=== PATIENT | female | born 1980 | race Hispanic/Latino ===

== ENCOUNTER 2020-12-26 16:30 | Inpatient (IN) | payer OTHER ==
--- NOTE | 2020-12-26 19:49 | Ultrasound Report ---
ULTRASOUND OBSTETRIC LIMITED ULTRASOUND BIOPHYSICAL PROFILE INDICATION / CLINICAL INFORMATION: ANDREW - DECREASED MOVEMENT. COMPARISON: None available. FINDINGS: BREATHING MOVEMENT = 2 GROSS BODY MOVEMENT = 2 TONE = 2 QUALITATIVE AMNIOTIC FLUID VOLUME = 0 TOTAL BIOPHYSICAL SCORE = 6/8 HEART RATE (beats per minute): 129 AMNIOTIC FLUID INDEX (cm) = 4.2 (normal = 7-24 cm) PRESENTATION: Cephalic. ADDITIONAL FINDINGS: None. IMPRESSION: 1. Biophysical Score = 6/8 2. Low amniotic fluid index of 4.2 cm. Signer Name: Francesco Álvarez MD Signed: 12/26/2020 7:45 PM Workstation Name: [email or web address]
[2020-12-26] MEDS ORDERED: BUTORPHANOL 2 MG/1 ML INJ IV PRN (20:50)
[2020-12-26] MEDS ORDERED: ONDANSETRON 4 MG/2 ML INJ IV PRN (20:50)
[2020-12-26] MEDS ORDERED: LIDOCAINE (2%) 20 MG/1 ML VIAL 20 ML MDV INFILTRATI ONE (20:50)
[2020-12-26] MEDS ORDERED: miSOPROStol 200 MCG TAB PR PRN (20:50)
[2020-12-26] MEDS ORDERED: MINERAL OIL 30 ML ORAL LIQD PO PRN (20:50)
[2020-12-26] MEDS ORDERED: LOPERAMIDE 2 MG CAP PO PRN (20:50)
[2020-12-26] MEDS ORDERED: ACETAMINOPHEN 325 MG TAB PO PRN (20:50)
[2020-12-26] MEDS ORDERED: OXYTOCIN 10 UNIT/1 ML INJ IM PRN (20:50)
[2020-12-26] MEDS ORDERED: CARBOPROST TROMETHAMINE 250 MCG/1 ML INJ IM PRN (20:50)
[2020-12-26] MEDS ORDERED: METHYLERGONOVINE MALEATE 0.2 MG/ML VIAL IM PRN (20:50)
[2020-12-26] MEDS ORDERED: TERBUTALINE 1 MG/1 ML INJ SUB-Q PRN (20:50)
[2020-12-26] MEDS ORDERED: fentaNYL 100 MCG/2 ML INJ IV PRN (20:50)
[2020-12-26] MEDS ORDERED: ePHEDrine SULFATE 50 MG/1 ML INJ IV PRN (20:50)
[2020-12-26] MEDS ORDERED: OXYTOCIN DRIP 30 UNITS/500 ML BAG IV SCH (21:00)
[2020-12-26] MEDS ORDERED: AMPICILLIN/NS 2 GM/100 ML 2 GM/100 ML BAG IV ONE (21:00)
[2020-12-26] MEDS: LACTATED RINGERS 1,000 ML IV SCH (21:17)
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
[2020-12-26 21:29] LABS: Hematocrit 35.4 % (30.3-42.9); Hemoglobin 12.4 gm/dl (10.1-14.3); Mean Corpuscular HGB Conc 35 % (30-34); Mean Corpuscular Volume 87 fl (79-97); Platelet Count 136 K/mm3 (140-440)
[2020-12-26 21:53] LABS: Alanine Aminotransferase 9 units/L (7-56); Uric Acid 5.5 mg/dL (3.5-7.6)
[2020-12-27] MEDS: LACTATED RINGERS 1,000 ML IV SCH ×2 (06:41→12:09)
--- NOTE | 2020-12-27 10:42 | Progress Note ---
Assessment and Plan A: IUP@ 39.6 wks AMA, OLIGO, PIH P: Continue monitoring with Pitocin AROM by Dr Zurita (cl fluid) Pain med/epidural prn Anticipate Subjective - Subjective Date of service: 12/27/20 Principal diagnosis: IUP@39.6 wks Patient reports: movement normal Objective - Vital Signs Vital Signs: Vital Signs - 12hr 12/26/20 12/26/20 12/26/20 22:40 22:41 22:46 Pulse Rate 69 66 70 Blood Pressure 116/60 O2 Sat by Pulse 97 97 Oximetry 12/26/20 12/26/20 12/26/20 22:51 22:56 23:01 Pulse Rate 70 68 75 Blood Pressure O2 Sat by Pulse 98 96 97 Oximetry 12/26/20 12/26/20 12/26/20 23:06 23:10 23:11 Pulse Rate 70 68 68 Blood Pressure 111/55 O2 Sat by Pulse 98 98 Oximetry 12/26/20 12/26/20 12/26/20 23:16 23:21 23:26 Pulse Rate 65 64 71 Blood Pressure O2 Sat by Pulse 98 97 96 Oximetry 12/26/20 12/26/20 12/26/20 23:40 23:45 23:50 Pulse Rate 73 68 70 Blood Pressure O2 Sat by Pulse 99 99 98 Oximetry 12/26/20 12/27/20 12/27/20 23:55 00:00 00:05 Pulse Rate 66 73 71 Blood Pressure O2 Sat by Pulse 98 98 98 Oximetry 12/27/20 12/27/20 12/27/20 00:10 00:15 00:20 Pulse Rate 67 70 79 Blood Pressure 133/77 O2 Sat by Pulse 98 97 96 Oximetry 12/27/20 12/27/20 12/27/20 00:25 00:30 00:35 Pulse Rate 61 68 71 Blood Pressure O2 Sat by Pulse 98 97 98 Oximetry 12/27/20 12/27/20 12/27/20 00:39 00:40 00:45 Pulse Rate 75 73 62 Blood Pressure 117/85 O2 Sat by Pulse 98 97 Oximetry 12/27/20 12/27/20 12/27/20 00:50 00:55 01:05 Pulse Rate 64 74 76 Blood Pressure O2 Sat by Pulse 96 96 99 Oximetry 12/27/20 12/27/20 12/27/20 01:10 01:11 01:15 Pulse Rate 74 75 77 Blood Pressure 130/88 O2 Sat by Pulse 98 98 Oximetry 12/27/20 12/27/20 12/27/20 01:20 01:25 01:30 Pulse Rate 64 68 66 Blood Pressure O2 Sat by Pulse 98 99 98 Oximetry 12/27/20 12/27/20 12/27/20 01:35 01:39 01:40 Pulse Rate 78 76 73 Blood Pressure 122/80 O2 Sat by Pulse 98 99 Oximetry 12/27/20 12/27/20 12/27/20 01:45 01:50 01:55 Pulse Rate 68 64 77 Blood Pressure O2 Sat by Pulse 96 97 97 Oximetry 12/27/20 12/27/20 12/27/20 02:00 02:05 02:10 Pulse Rate 69 70 66 Blood Pressure O2 Sat by Pulse 96 97 96 Oximetry 12/27/20 12/27/20 12/27/20 02:43 02:48 02:53 Pulse Rate 68 55 L 67 Blood Pressure O2 Sat by Pulse 97 97 99 Oximetry 12/27/20 12/27/20 12/27/20 02:58 03:03 03:06 Pulse Rate 68 73 71 Blood Pressure O2 Sat by Pulse 97 97 94 Oximetry 12/27/20 12/27/20 12/27/20 03:19 03:24 03:29 Pulse Rate 65 68 67 Blood Pressure O2 Sat by Pulse 99 97 97 Oximetry 12/27/20 12/27/20 12/27/20 03:34 03:39 03:44 Pulse Rate 67 79 74 Blood Pressure O2 Sat by Pulse 98 97 98 Oximetry 12/27/20 12/27/20 12/27/20 03:48 03:49 03:54 Pulse Rate 67 65 64 Blood Pressure O2 Sat by Pulse 94 98 97 Oximetry 12/27/20 12/27/20 12/27/20 03:59 04:04 04:09 Pulse Rate 63 66 66 Blood Pressure O2 Sat by Pulse 96 98 96 Oximetry 12/27/20 12/27/20 12/27/20 04:14 04:19 04:24 Pulse Rate 66 69 65 Blood Pressure O2 Sat by Pulse 95 96 95 Oximetry 12/27/20 12/27/20 12/27/20 04:29 04:34 04:39 Pulse Rate 67 70 72 Blood Pressure O2 Sat by Pulse 96 96 96 Oximetry 12/27/20 12/27/20 12/27/20 04:44 04:49 04:54 Pulse Rate 68 65 74 Blood Pressure O2 Sat by Pulse 96 96 96 Oximetry 12/27/20 12/27/20 12/27/20 04:59 05:04 05:09 Pulse Rate 66 67 65 Blood Pressure O2 Sat by Pulse 96 96 96 Oximetry 12/27/20 12/27/20 12/27/20 05:14 05:19 05:24 Pulse Rate 65 67 65 Blood Pressure O2 Sat by Pulse 95 96 97 Oximetry 12/27/20 12/27/20 12/27/20 05:29 05:34 05:39 Pulse Rate 69 69 60 Blood Pressure O2 Sat by Pulse 96 96 96 Oximetry 12/27/20 12/27/20 12/27/20 05:40 05:44 05:49 Pulse Rate 69 66 71 Blood Pressure O2 Sat by Pulse 94 95 97 Oximetry 12/27/20 12/27/20 12/27/20 05:54 05:59 06:39 Pulse Rate 69 73 56 L Blood Pressure O2 Sat by Pulse 97 98 97 Oximetry 12/27/20 12/27/20 12/27/20 06:44 06:49 06:54 Pulse Rate 61 62 66 Blood Pressure O2 Sat by Pulse 97 97 98 Oximetry 12/27/20 12/27/20 12/27/20 06:59 07:04 07:09 Pulse Rate 65 58 L 57 L Blood Pressure O2 Sat by Pulse 97 97 97 Oximetry 12/27/20 12/27/20 12/27/20 07:14 07:19 07:24 Pulse Rate 59 L 59 L 61 Blood Pressure O2 Sat by Pulse 97 97 97 Oximetry 12/27/20 12/27/20 12/27/20 07:29 07:33 07:34 Pulse Rate 71 78 72 Blood Pressure O2 Sat by Pulse 100 93 96 Oximetry 12/27/20 12/27/20 12/27/20 07:40 07:44 07:50 Pulse Rate 63 66 67 Blood Pressure O2 Sat by Pulse 97 97 98 Oximetry 12/27/20 12/27/20 12/27/20 07:54 07:59 08:04 Pulse Rate 63 65 71 Blood Pressure O2 Sat by Pulse 96 97 93 Oximetry 12/27/20 12/27/20 12/27/20 08:05 08:10 08:14 Pulse Rate 69 63 66 Blood Pressure O2 Sat by Pulse 97 96 97 Oximetry 12/27/20 12/27/20 12/27/20 08:20 08:24 08:29 Pulse Rate 59 L 60 63 Blood Pressure O2 Sat by Pulse 98 97 97 Oximetry 12/27/20 12/27/20 12/27/20 08:34 08:39 08:45 Pulse Rate 59 L 64 64 Blood Pressure O2 Sat by Pulse 97 96 99 Oximetry 12/27/20 12/27/20 12/27/20 08:50 08:55 08:59 Pulse Rate 67 69 64 Blood Pressure 103/68 O2 Sat by Pulse 98 98 98 Oximetry 12/27/20 12/27/20 12/27/20 09:05 09:10 09:11 Pulse Rate 66 77 70 Blood Pressure 120/69 O2 Sat by Pulse 99 99 Oximetry 12/27/20 12/27/20 12/27/20 09:15 09:20 09:24 Pulse Rate 74 86 61 Blood Pressure O2 Sat by Pulse 99 100 99 Oximetry 12/27/20 12/27/20 12/27/20 09:30 09:35 09:40 Pulse Rate 59 L 62 76 Blood Pressure O2 Sat by Pulse 98 96 98 Oximetry 12/27/20 12/27/20 12/27/20 09:45 09:50 09:55 Pulse Rate 59 L 60 66 Blood Pressure O2 Sat by Pulse 99 100 98 Oximetry 12/27/20 12/27/20 12/27/20 09:58 10:00 10:04 Pulse Rate 67 67 66 Blood Pressure O2 Sat by Pulse 93 99 100 Oximetry 12/27/20 12/27/20 12/27/20 10:09 10:10 10:11 Pulse Rate 67 68 67 Blood Pressure 124/70 O2 Sat by Pulse 100 93 Oximetry 12/27/20 12/27/20 12/27/20 10:14 10:20 10:25 Pulse Rate 70 77 67 Blood Pressure O2 Sat by Pulse 100 93 99 Oximetry 12/27/20 12/27/20 10:30 10:35 Pulse Rate 71 71 Blood Pressure O2 Sat by Pulse 100 99 Oximetry - Exam Breasts: deferred Abdomen: Present: normal appearance, soft, normal bowel sounds Vulva: both: normal Uterus: Present: normal FHR: auscultation normal, category 1 Uterine Contraction Monitor Mode: External Cervical Dilatation: 3 Cervical Effacement Percentage: 50 station: -4 Uterine Contraction Pattern: Irregular Uterine Tone Measurement Phase: Resting Uterine Contraction Intensity: Mild Extremities: normal - Labs Labs: Abnormal Labs 12/26/20 20:57 MCHC 35 H RDW 16.0 H Plt Count 136 L Laboratory Results - last 24 hr 12/26/20 12/26/20 12/26/20 20:57 20:57 20:57 WBC 7.0 RBC 4.10 Hgb 12.4 Hct 35.4 MCV 87 MCH 30 MCHC 35 H RDW 16.0 H Plt Count 136 L Creatinine 0.6 Estimated GFR > 60 Uric Acid 5.5 AST 16 ALT 9 Lactate Dehydrogenase 149 Syphilis IgG Antibody Nonreactive Blood Type Antibody Screen 12/26/20 20:57 WBC RBC Hgb Hct MCV MCH MCHC RDW Plt Count Creatinine Estimated GFR Uric Acid AST ALT Lactate Dehydrogenase Syphilis IgG Antibody Blood Type O POSITIVE Antibody Screen Negative
[2020-12-27] MEDS ORDERED: NALOXONE 2 MG/2 ML INJ IV PRN (11:25)
--- NOTE | 2020-12-27 11:25 | Anesthesia Consultation ---
Anesthesia Consult and Med Hx Date of service: 12/27/20 - Pulmonary Exam CTA: Yes - Cardiac Exam Cardiac Exam: RRR - Pre-Operative Health Status ASA Pre-Surgery Classification: ASA3 Proposed Anesthetic Plan: Epidural - Pulmonary Hx Asthma: Yes COPD: No Hx Pneumonia: No - Cardiovascular System Hx Hypertension: Yes (B/P MONITORED THIS ) - Central Nervous System Hx Seizures: No Hx Psychiatric Problems: No - Endocrine Hx Renal Disease: No Hx End Stage Renal Disease: No Hx Hypothyroidism: No Hx Hyperthyroidism: No - Hematic Hx Anemia: No Hx Sickle Cell Disease: No - Other Systems Hx Alcohol Use: No
[2020-12-27] MEDS ORDERED: ePHEDrine SULFATE 50 MG/1 ML INJ IV PRN (11:30)
--- NOTE | 2020-12-27 11:46 | Progress Note ---
Labor Epidural - Labor Epidural Start Time: 11:37 Stop Time: 11:41 Performed by:: BRANT BRICEÑO Procedure: Patient is requesting epidural for labor pain. H&P, and labs reviewed. Procedure explained, questions answered, consent obtained. Patient in sitting position with blood pressure cuff and pulse ox on and working. Timeout performed immediately before start of procedure. Sterile chlorahexadine 0.5% prep/drape. 3 mL 1% lidocaine skin wheal at L[3]-L[4]. 18-gauge MSTtead epidural needle advanced to [id number] with saline at [7] cm. Epidural catheter advanced to [12] cm, negative aspiration for blood and csf, negative test dose 3 ml 1.5% lidocaine with epinephrine. Epidural dexmedetomidine [30] mcg administered. Sterile steri-strips and tegaderm applied, followed by tape reinforcement. Patient tolerated procedure well. Diego DEL TORO
[2020-12-27] MEDS ORDERED: fentaNYL-BUPIV 2 MCG/ML-0.125% 200 MCG/100 ML BAG EPIDURAL SCH (12:00)
--- NOTE | 2020-12-27 17:49 | Procedure Note ---
OB Delivery Note - Delivery Date of Delivery: 12/27/20 Surgeon: BABS WONG Estimated blood loss: 200cc - Vaginal Delivery presentation: vertex Delivery position: OA Intrapartum events: other(please specify) (OLIGO,PIH,AMA) Delivery induction: oxytocin Delivery augmentation: rupture of membranes Delivery monitor: external FHT, external uterine Route of delivery: Delivery placenta: spontaneous Delivery cord: 3 umbilical vessels Episiotomy: none Delivery laceration: 1st degree Delivery repair: vicryl Anesthesia: epidural Delivery comments: Called to by nurse for delivery. SVE 10/100%/+1 and pt was pushing. of a live viable female in OA position. Spontaneous delivery of head and shoulders. Infant immediately to mom's chest for skin to skin bonding. Delayed cord clamping while NICU nurse dried and stimulated baby. Cord was clamped x 2 and FOB was guided in cutting the cord. Baby was taken to warmer by NICU nurse for an initial asses 8/9. Cord blood was obtained. Spontaneous delivery of an intact placenta with 3CV. FF@ U3 with fundal massage and IV Pitocin. An exploration of tears revealed a first degree perineal laceration which was repaired with a 3-[address]-1 under epidural anesthesia. FW 3020 Gms. QBL 167cc per nurse. Mom and baby was left in stable condition with nurse. - Infant A at 1 minute: 8 at 5 minutes: 9 Infant Gender: Female (FW 3020 Gms)
[2020-12-28] MEDS: IBUPROFEN 800 MG TAB PO PRN ×2 (00:55→09:57)
[2020-12-28 07:33] LABS: Hematocrit 35.6 % (30.3-42.9)
--- NOTE | 2020-12-28 13:36 | Progress Note ---
Assessment and Plan A: day 1 S/P . P: Continue routine care. Anticipate discharge home later today or tomorrow morning if patient continues to do well and when baby is discharged. Subjective - Subjective Date of service: 12/28/20 Principal diagnosis: day 1 S/P Patient reports: appetite normal, voiding normally, pain well controlled, flatus, ambulating normally, no dizzy ambulation, no nauseated : doing well Objective - Vital Signs Latest vital signs: Vital Signs Temp Pulse Resp BP BP Pulse Ox Pulse Ox 12/28/20 11:22 98.0 F 56 L 18 115/76 95 12/28/20 07:50 98 12/28/20 07:31 97.3 F L 63 18 113/76 97 12/28/20 06:21 97.6 F 69 18 104/51 95 12/28/20 02:18 98.4 F 80 18 114/59 97 12/27/20 20:35 98.5 F 74 16 94/53 98 12/27/20 20:01 96 H 93 12/27/20 20:00 88 99 12/27/20 19:55 84 99 12/27/20 19:50 92 H 94 12/27/20 19:45 89 100 12/27/20 19:40 81 99 12/27/20 19:35 94 H 90 12/27/20 19:32 90 94 12/27/20 19:30 98 H 100 12/27/20 19:26 94 H 128/61 12/27/20 19:25 90 100 12/27/20 19:20 96 H 100 12/27/20 19:15 80 99 12/27/20 19:12 84 94 12/27/20 19:10 98.3 F 64 18 99 12/27/20 19:05 63 100 12/27/20 19:00 72 86 12/27/20 18:55 72 100 12/27/20 18:51 73 92 12/27/20 18:50 80 97 12/27/20 18:45 72 100 12/27/20 18:40 75 85 12/27/20 18:35 78 100 12/27/20 18:30 80 99 12/27/20 18:29 82 85 12/27/20 18:25 74 100/55 100 12/27/20 18:20 73 99 12/27/20 18:15 68 100 12/27/20 18:12 76 90 12/27/20 18:10 71 100 12/27/20 18:05 66 99 12/27/20 18:00 65 99 12/27/20 17:55 65 100 12/27/20 17:50 68 100 12/27/20 17:45 75 100 12/27/20 17:40 72 100 12/27/20 17:35 67 100 12/27/20 17:30 75 98 12/27/20 17:25 80 98 12/27/20 17:23 70 91 12/27/20 17:20 64 98 12/27/20 17:17 62 92 12/27/20 17:15 67 97 12/27/20 17:13 67 95/58 12/27/20 17:10 64 99/61 100 12/27/20 17:07 72 97/61 12/27/20 17:05 59 L 100 12/27/20 17:04 67 99/66 12/27/20 17:01 70 102/56 12/27/20 17:00 74 91 12/27/20 16:58 60 97/54 12/27/20 16:55 65 96/53 100 12/27/20 16:52 70 93/51 12/27/20 16:50 68 99 12/27/20 16:49 71 99/58 12/27/20 16:46 74 99/56 12/27/20 16:45 89 100 12/27/20 16:44 73 91 12/27/20 16:43 63 106/55 12/27/20 16:40 67 108/56 100 12/27/20 16:39 61 82 L 12/27/20 16:37 54 L 98/51 12/27/20 16:35 67 71 L 12/27/20 16:32 80 112/77 12/27/20 16:31 52 L 76 L 12/27/20 16:30 59 L 99 12/27/20 16:28 63 99/51 12/27/20 16:25 65 96/58 99 12/27/20 16:22 68 92/54 12/27/20 16:20 62 86/51 98 12/27/20 16:19 57 L 87/55 12/27/20 16:16 63 88/53 08/05/21 16:15 71 100 12/27/20 16:13 53 L 94/54 12/27/20 16:10 68 92/55 99 12/27/20 16:09 67 89 12/27/20 16:07 72 88/51 12/27/20 16:05 60 99 12/27/20 16:04 75 91/58 12/27/20 16:01 60 89/54 12/27/20 16:00 69 89 12/27/20 15:58 67 89/50 12/27/20 15:55 76 87/50 98 12/27/20 15:52 75 97/61 12/27/20 15:50 69 99 12/27/20 15:49 63 90/53 12/27/20 15:46 60 85/53 12/27/20 15:45 62 100 12/27/20 15:43 62 85/50 12/27/20 15:40 76 97/60 99 12/27/20 15:37 78 100/61 12/27/20 15:35 73 93 12/27/20 15:34 54 L 93/54 12/27/20 15:31 63 93/55 12/27/20 15:30 61 100 12/27/20 15:28 61 93/55 12/27/20 15:25 64 94/51 99 12/27/20 15:22 63 97/50 12/27/20 15:20 55 L 99 12/27/20 15:19 55 L 104/52 12/27/20 15:16 64 87/68 12/27/20 15:15 76 97 12/27/20 15:13 67 88/53 12/27/20 15:10 65 84/50 98 12/27/20 15:07 50 L 80/50 12/27/20 15:05 55 L 97 12/27/20 15:04 50 L 77/48 12/27/20 15:01 52 L 83/51 12/27/20 15:00 57 L 97 12/27/20 14:58 59 L 80/52 12/27/20 14:55 63 79/49 98 12/27/20 14:52 71 89/55 12/27/20 14:50 53 L 89/51 99 12/27/20 14:46 66 79/52 12/27/20 14:45 61 97 12/27/20 14:43 58 L 74/47 12/27/20 14:40 50 L 82/50 97 12/27/20 14:37 55 L 83/49 12/27/20 14:35 58 L 97 12/27/20 14:34 54 L 73/46 12/27/20 14:31 57 L 75/46 12/27/20 14:30 61 97 12/27/20 14:28 53 L 81/49 12/27/20 14:25 61 81/48 98 12/27/20 14:22 58 L 91/51 12/27/20 14:20 62 98 12/27/20 14:19 55 L 78/46 12/27/20 14:16 51 L 84/51 12/27/20 14:15 57 L 99 12/27/20 14:13 51 L 79/46 12/27/20 14:10 52 L 81/52 99 12/27/20 14:07 59 L 84/49 93 12/27/20 14:05 55 L 97 12/27/20 14:04 53 L 84/51 12/27/20 14:01 53 L 90/51 12/27/20 14:00 53 L 98 12/27/20 13:58 52 L 87/55 12/27/20 13:55 57 L 85/51 98 12/27/20 13:52 57 L 90/55 12/27/20 13:50 52 L 98 12/27/20 13:49 51 L 85/50 12/27/20 13:46 54 L 91/55 12/27/20 13:45 64 99 12/27/20 13:43 59 L 91/51 12/27/20 13:40 60 92/50 98 12/27/20 13:37 55 L 90/50 12/27/20 13:35 60 99 12/27/20 13:34 53 L 84/52 Intake and Output 12/27/20 12/28/20 12/28/20 23:59 07:59 15:59 Intake Total 600 Output Total 1650 900 Balance -1650 -300 Intake: Intake, Free Water 600 Output: Urine 1650 900 Indwelling Catheter 450 Void 1200 900 Other: Total, Output Amount 500 500 # Voids Void 1 Estimated Blood Loss 167 - Exam Cardiovascular: Present: Regular rate Lungs: Present: Clear to auscultation Abdomen: Present: normal appearance, soft, normal bowel sounds. Absent: distention, tenderness, guarding, rigidity Uterus: Present: normal, firm, fundal height below umbilicus. Absent: bogginess, tenderness Extremities: Present: normal, edema (trace pedal edema bilaterally). Absent: tenderness
--- NOTE | 2020-12-28 20:27 | Post Anesthesia Evaluation ---
- Post Anesthesia Evaluation Patient Participated: Yes Airway Patent: Yes Stable Respiratory Function: Yes Nausea/Vomiting: No Temp > 96.8F: Yes Pain Manageable: Yes Adequeate Hydration: Yes Anesthesia Complications: No Block Receding Appropriately: Yes
--- NOTE | 2020-12-28 20:42 | Discharge Summary ---
Providers - Providers Date of Admission: 12/26/20 20:50 Date of discharge: 12/28/20 Attending physician: ANDREA ARGUETA JR, MD Primary care physician: ANDREA ARGUETA JR, MD Hospitalization Reason for admission: induction of labor Delivery: Episiotomy: none Laceration: 1st degree Other procedures: none complications: none Discharge diagnosis: IUP at term delivered [place] baby: female Pertinent studies: Labs Hospital course: Stable hospital course. Condition at discharge: Good Disposition: DC-01 TO HOME OR SELFCARE - Discharge Diagnoses (1) Term delivered Status: Acute Plan - Provider Discharge Summary Activity: routine, no sex for 6 weeks, no heavy lifting 4 weeks, no strenuous exercise Diet: routine Instructions: routine Additional instructions: Continue taking your vitamins at home. Follow up in 1 week at [facility] office. Call your doctor immediately for: * Fever > 100.5 * Heavy vaginal bleeding ( >1 pad per hour) * Severe persistent headache * Shortness of breath * Reddened, hot, painful area to leg or breast - Follow up plan Follow up: ANDREA ARGUETA JR, MD [Primary Care Provider] - 7 Days Forms: [facility] Discharge Summary, Discharge Signature Page
[2020-12-28 21:45] VITALS: BP 136/93
[2020-12-29] MEDS ORDERED: TETANUS,DIPH,PERTUSS(ACELL) VACCINE 0.5 ML SYRINGE IM ONE (06:00)
== END 2020-12-28 21:30 | disposition home or self-care (01) | DRG 775 ==
LOC: TRG 16:30 → APU 16:35 → LD 20:50 → TRG 20:50 → OB 12-27 20:33
PROVIDERS: ADMIT Obstetrics & Gynecology; ATTEND Obstetrics & Gynecology
PROC: 10E0XZZ Delivery of Products of Conception, External Approach (ICD-10-PCS; principal; 2020-12-27)
PROC: 10907ZC Drainage of Amniotic Fluid, Therapeutic from Products of Conception, Via Natural or Artificial Opening (ICD-10-PCS; 2020-12-27)
PROC: 3E0R3BZ Introduction of Anesthetic Agent into Spinal Canal, Percutaneous Approach (ICD-10-PCS; 2020-12-27)
PROC: 00HU33Z Insertion of Infusion Device into Spinal Canal, Percutaneous Approach (ICD-10-PCS; 2020-12-27)
PROC: 3E033VJ Introduction of Other Hormone into Peripheral Vein, Percutaneous Approach (ICD-10-PCS; 2020-12-27)
PROC: 0HQ9XZZ Repair Perineum Skin, External Approach (ICD-10-PCS; 2020-12-27)
PROC: 3E0234Z Introduction of Serum, Toxoid and Vaccine into Muscle, Percutaneous Approach (ICD-10-PCS; 2020-12-28)
DX: O41.03X0 Oligohydramnios, third trimester, not applicable or unspecified (principal); Z37.0 Single live birth; Z3A.39 39 weeks gestation of pregnancy; O13.3 Gestational [pregnancy-induced] hypertension without significant proteinuria, third trimester; O99.344 Other mental disorders complicating childbirth; O09.523 Supervision of elderly multigravida, third trimester; F90.9 Attention-deficit hyperactivity disorder, unspecified type; O99.52 Diseases of the respiratory system complicating childbirth; F41.9 Anxiety disorder, unspecified; J45.909 Unspecified asthma, uncomplicated; Z20.822 Contact with and (suspected) exposure to COVID-19; Z23 Encounter for immunization; O70.0 First degree perineal laceration during delivery
CPT/HCPCS: 36415; 59025; 76815; 76816; 76819; 82565; 83615; 84450; 84460; 84550; 85014; 85018; 85027; 86592; 86850; 86900; 86901; 88307; G0378; J2590; J7120; U0003